=== PATIENT | male | born 1965 | race Caucasian/White ===

== ENCOUNTER → 2022-06-29 09:07 | Outpatient (CLI) | payer BC, SELFPAY ==
--- NOTE | ~2022-06-29 | XR_ITS ---
EXAMINATION: [id number] DATE: 06/29/2022 09:20 INDICATION: Neck pain. Bilateral arm numbness. TECHNIQUE: 3 views of cervical spine were obtained. COMPARISON: None. FINDINGS: There is 3 degrees levocurvature of cervical spine. There is kyphosis of cervical spine. Ve rtebral body heights are normal. There is moderately decreased disc height at C4-C5 and C5-C6 and mil dly decreased disc height at C6-C7. There is multilevel uncovertebral joint osteoarthritis, severe bi laterally at C4-C5 and on the right at C5-C6. There is mild central canal stenosis at C4-C5 and C5-C6 . No prevertebral soft tissue swelling. IMPRESSION: 1. Moderate cervical spondylosis. Reviewed, dictated and finalized at location A.
== END ==
PROVIDERS: PCP Nurse Practitioner Family; Visit Provider Nurse Practitioner Family
DX: R20.2 Paresthesia of skin (principal); M47.892 Other spondylosis, cervical region
CPT/HCPCS: 72040